=== PATIENT | female | born 1975 | race Caucasian/White ===

== ENCOUNTER → 2024-01-05 13:25 | Outpatient (REF) | payer BC, SELFPAY | LOC: HWWDC 13:25 | PROVIDERS: ATTENDING PHYSICIAN Physician Assistant Medical | DX: Z12.31 Encounter for screening mammogram for malignant neoplasm of breast (principal) | CPT/HCPCS: 77063; 77067 ==

== ENCOUNTER → 2024-02-09 06:33 | Day surgery (SDC) | payer BC, SELFPAY | LOC: GI 06:33 | PROVIDERS: ATTENDING PHYSICIAN Internal Medicine | DX: Z12.11 Encounter for screening for malignant neoplasm of colon (principal); K62.89 Other specified diseases of anus and rectum | CPT/HCPCS: G0121 ==

== ENCOUNTER → 2024-10-24 14:22 | Outpatient (REF) | payer BC, SELFPAY | LOC: HWRAD 14:22 | PROVIDERS: ATTENDING PHYSICIAN Physician Assistant | DX: R10.11 Right upper quadrant pain (principal) | CPT/HCPCS: 76700 ==